=== PATIENT | female | born 1975 ===

== ENCOUNTER 2016-09-29 16:39 | Outpatient (CLI) | payer MEDICARE ==
[2016-09-29 16:59] LABS: INR 2.26 (0.87-1.13)
== END 2016-09-29 16:40 | disposition home or self-care (01) ==
LOC: LABHHL 16:39
DX: Z79.01 Long term (current) use of anticoagulants (principal)
CPT/HCPCS: 36415; 85610

== ENCOUNTER 2016-10-14 11:54 | Outpatient (CLI) | payer MEDICARE ==
[2016-10-14 12:25] LABS: INR 3.18 (0.87-1.13)
== END 2016-10-14 11:55 | disposition home or self-care (01) ==
LOC: LABHHL 11:54
DX: I50.23 Acute on chronic systolic (congestive) heart failure (principal); Z95.811 Presence of heart assist device
CPT/HCPCS: 36415; 85610

== ENCOUNTER 2016-10-26 10:24 | Outpatient (CLI) | payer MEDICARE ==
[2016-10-26 10:50] LABS: INR 2.84 (0.87-1.13)
== END 2016-10-26 10:25 | disposition home or self-care (01) ==
LOC: LABHHL 10:24
PROVIDERS: ATTEND Internal Medicine
DX: I50.9 Heart failure, unspecified (principal); Z79.01 Long term (current) use of anticoagulants; Z95.811 Presence of heart assist device
CPT/HCPCS: 36415; 85610